=== PATIENT | male | born 1995 | race African-American/Black ===

== ENCOUNTER 2021-01-15 00:24 | Emergency (ER) | payer OTHER, SELFPAY ==
--- NOTE | ~2021-01-15 | XR_ITS ---
EXAMINATION: XR FOREARM, RIGHT XR WRIST, RIGHT CLINICAL INFORMATION: Pain and swelling COMPARISON: None TECHNIQUE: 2 views of the right forearm. 3 views of the right wrist. FINDINGS: Osseous alignment throughout the forearm and wrist is anatomic. No acute fracture is seen. No significant focal soft tissue abnormality identified. No elbow joint effusion. XR/XR forearm RT 2V IMPRESSION: No acute findings identified in the right forearm or wrist.
--- NOTE | ~2021-01-15 | XR_ITS ---
EXAMINATION: XR FOREARM, RIGHT XR WRIST, RIGHT CLINICAL INFORMATION: Pain and swelling COMPARISON: None TECHNIQUE: 2 views of the right forearm. 3 views of the right wrist. FINDINGS: Osseous alignment throughout the forearm and wrist is anatomic. No acute fracture is seen. No significant focal soft tissue abnormality identified. No elbow joint effusion. XR/XR wrist RT 2V IMPRESSION: No acute findings identified in the right forearm or wrist.
[2021-01-15 01:05] VITALS: BP 112/67; PULSE 91; RESP 18; TEMP 36.9; O2SAT 100; BMI 20.2
--- NOTE | 2021-01-15 01:14 | ED.EXTPRO ---
HPI - Extremity Problem General Chief complaint: Extremity Injury, Upper Stated complaint: Wrist pain Source: patient Mode of arrival: ambulatory Limitations: no limitations History of Present Illness HPI Narrative: 25-year-old male with past medical history of stressed induced syncope presents with right wrist and forearm pain and swelling after a fall on outstretched arm. Patient has no other complaints. MD Complaint: extremity pain and extremity swelling Onset (ago): hour(s) (Within the hour of arrival) Pain Consistency: constant Location: right Severity scale (1-10): 7 Quality: aching Radiation: distal Relieving factors: nothing Exacerbating factors: range of motion and palpation Associated symptoms: denies other symptoms Related Data Allergies Allergy/AdvReac Type Severity Reaction Status Date / Time No Known Allergies Allergy Verified 01/15/21 01:16 Review of Systems Review of Systems: Constitutional: No Fever, No Chills ENT/Mouth: No Ear Pain, No Hoarseness, No sore throat Eyes: No Eye Pain, No Swelling, No Redness, No Foreign Body Cardiovascular: No Chest Pain, No SOB Respiratory: No Cough, No Dyspnea Gastrointestinal: No Nausea, No Vomiting, No Diarrhea, No abdominal Pain Genitourinary: No Dysuria, No Hematuria Musculoskeletal: positive right wrist and forearm pain, No Myalgias, No Joint Swelling Skin: No Skin lacerations, No rash Neuro: No Weakness, No Numbness, No Paresthesias, No Loss of Consciousness, No Dizziness, No Headache Psych: No Anxiety/Panic, No Depression Heme/Lymph: no easy bruising, no Lymphadenopathy Endocrine: No Polyuria, No Polydipsia Yes all other systems are reviewed and are negative PMFSH Past Medical History Attestation statement: The following information was validated with the patient. Source: old records reviewed Medical History No known health problems Social History Social History Advance Directives: No Advance Directives Information Provided: No Physical Exam Vital Signs: Vital Signs: Last Vital Signs Temp 98.4 F 01/15/21 01:05 Pulse 91 01/15/21 01:05 Resp 18 01/15/21 01:05 BP 112/67 01/15/21 01:05 Pulse Ox 100 01/15/21 01:05 Body Mass Index 20.2 Appearance: Alert. Oriented X3. No acute distress. Eyes: Pupils equal, round and reactive to light. ENT: Pharynx normal. Neck: Normal inspection. Neck supple. CVS: Normal heart rate and rhythm. Pulses normal. Respiratory: No respiratory distress. Breath sounds normal. Abdomen: Soft and nontender. Skin: Skin warm and dry. Normal skin color. Normal skin turgor. Extremities: Full range of motion to all extremities, brisk capillary refill, equal pulses, strength 5/5. Tenderness noted to the ulnar and radial process to right upper extremity. No snuffbox tenderness noted Neuro: No motor deficit. No sensory deficit. Course Course Course Narrative: 25-year-old male presents with right arm pain and swelling after a FOOSH. Plan is for x-ray. X-rays negative for acute findings requiring emergent intervention, no suspicion of fracture. Plan of care is for Jonatan wrap, and Motrin. Patient verbalized understanding of and agrees plan of care discharge home. MDM - Extremity (Nontraumatic) MDM Narrative Medical decision making narrative: Wrist sprain, fracture Medical Records Attestation: I reviewed the patient's medical records. Imaging Data Wrist and forearm x-ray: Attestation: I personally reviewed and interpreted this imaging study as follows: Discharge Plan Discharge Clinical Impression: Contusion Qualifiers: Encounter type: initial encounter Contusion area: forearm Laterality: right Qualified Code(s): S50.11XA - Contusion of right forearm, initial encounter Patient Disposition: Home, Self-Care Instructions: Contusion in Adults (ED), R.I.C.E. Treatment (ED) Additional Instructions: You were evaluated for right arm pain. X-rays are negative for fractures. We provide an Jonatan wrap for comfort. Please use Motrin as needed for pain management. Ice and elevate to help reduce swelling and pain. Follow-up with primary care provider as needed. Thank you for choosing this emergency department for evaluation. Please follow-up with primary care physician as needed. Return to the emergency department for any new, concerning, or worsening symptoms.
[2021-01-15 02:13] VITALS: BP 120/66; PULSE 88; RESP 18; TEMP 36.9; O2SAT 98
== END 2021-01-15 03:03 | disposition home or self-care (01) ==
PROVIDERS: Emergency Provider Student in an Organized Health Care Education/Training Program
DX: S50.11XA Contusion of right forearm, initial encounter (principal); S60.211A Contusion of right wrist, initial encounter; W19.XXXA Unspecified fall, initial encounter; Y93.9 Activity, unspecified; Y92.9 Unspecified place or not applicable; Y99.9 Unspecified external cause status
CPT/HCPCS: 73090; 73100; 99283; 99284

== ENCOUNTER 2021-01-17 16:25 | Emergency (ER) | payer OTHER, SELFPAY ==
[2021-01-17 16:47] VITALS: BP 112/67; PULSE 98; RESP 18; TEMP 36.7; O2SAT 100; BMI 20.1
--- NOTE | 2021-01-17 17:50 | ED_ITS ---
HPI - Extremity Problem General Chief complaint: Extremity Injury, Upper Stated complaint: Wrist pain Time Seen by Provider: 01/17/21 17:29 Source: patient Mode of arrival: ambulatory Limitations: no limitations History of Present Illness HPI Narrative: Patient here with right upper extremity pain and intermittent numbness and tingling. The patient tells me on Monday he had a syncopal episode which he gets quite frequently and is being followed by his primary care doctor for. During that fall he landed on the right arm. He was seen here for pain and swelling and had x-rays which were unremarkable. Since then he has had pain which radiates from the elbow down the arm on the lateral aspect with intermittent numbness and tingling. Related Data Allergies Allergy/AdvReac Type Severity Reaction Status Date / Time No Known Allergies Allergy Verified 01/15/21 01:16 Review of Systems Review of Systems: Yes all other systems are reviewed and are negative Constitutional: Constitutional: Reports no additional constitutional complaints, Denies body ache(s), Denies chills, Denies fever(s), Denies headache(s) and Denies weakness Eyes: Eyes: Reports no additional eye complaints and Denies change in vision ENT: Reports system reviewed and no additional complaints, except as docum ented, Denies dizziness, Denies headache(s), Denies nasal congestion, Denies nasal discharge and Denies neck pain Cardiovascular: Cardiovascular: Reports no additional cardiovascular complaints, Denies chest pain, Denies leg edema and Denies dyspnea Respiratory: Respiratory: Reports no additional respiratory complaints, Denies cough and Denies dyspnea Gastrointestinal: Gastrointestinal: Reports no additional gastrointestinal complaints, Denies abdominal pain, Denies diarrhea, Denies nausea and Denies vomiting Genitourinary: Genitourinary: Denies urinary incontinence Musculoskeletal: Musculoskeletal: Reports no additional musculoskeletal complaints, Denies back pain, Reports arthralgias, Denies joint swelling, Denies neck pain, Reports numbness and Reports tingling Integumentary/Breasts: Skin/Breast: Reports system reviewed and no additional complaints, except as docu and Denies rash Neurologic: Reports system reviewed and no additional complaints, except as do cumented, Denies Abnormal speech present, Denies dizziness, Denies headache(s), Reports numbness, Reports tingling and Denies weakness [facility] Past Medical History Attestation statement: The following information was validated with the patient. Source: old records reviewed and nursing notes reviewed Medical History Vaso vagal episode Social History Social History Alcohol intake: never Smoked in Last 30 Days: No Use of substances other than those prescribed or required for medical reasons: No Any prior treatment program specific to substance use: No Advance Directives: No Advance Directives Information Provided: No Physical Exam Vital Signs: Vital Signs: Last Vital Signs Temp 98.1 F 01/17/21 16:47 Pulse 98 01/17/21 16:47 Resp 18 01/17/21 16:47 BP 112/67 01/17/21 16:47 Pulse Ox 100 01/17/21 16:47 Body Mass Index 20.1 Const: General: cooperative, healthy appearing, comfortable and no acute distress Orientation/consciousness: patient oriented x3 Limitations: no limitations HENMT: Head: Yes normal to inspection Ears: hearing grossly normal bilaterally General nose exam: Normal external nose present Face and sinus: Yes normal facial exam Mouth: Normal oral and palatal mucosa present Throat: Yes posterior oropharynx normal Eyes: General: appearance normal, both eyes and all related structures Pupils: Equal, round and reactive pupils present Neck: Neck: Yes normal visual inspection Chest: Chest palpation & inspection: normal inspection of the chest Resp: Effort & Inspection: normal respiratory effort Auscultation: clear to auscultation bilaterally Cardio: Rate: regular rate Rhythm: regular rhythm Peripheral pulses: Peripheral pulses 2+ throughout GI: Inspection: Yes normal to inspection Palpation (GI): Soft to palpation and nontender Auscultation: normal bowel sounds Back/Spine/Pelvis: Thoracic/Lumbar Spine: thoracic and lumbar spine normal to inspection Skin: General skin exam: no rashes or lesions noted Neuro: General: patient oriented x3, no focal motor deficits and normal sensation to monofilament Cranial nerves: Yes Equal, round and reactive pupils present Cognition (Neuro): normal cognition Speech: No Abnormal speech present Gait exam (Neuro): Normal gait present Motor exam (neuro): 5/5 motor strength present throughout Extrem: Other: Over the volar distal lateral aspect of the right wrist there is ecchymosis and mild swelling. The patient has full range of motion of the right hand and the right wrist and the right elbow with no difficulty. He is complaining of some pain which radiates from the elbow down to the 4th and 5th digit described as sharp with numbness and tingling. Normal pulse, pink warm and dry General: Yes normal to inspection Course Course Course Narrative: Persistent pain in the right upper extremity status post fall 6 days ago. Described as a radiating pain from the elbow down to the 4th and 5th digit with intermittent numbness and tingling. The patient has full range of motion. He does have an area of ecchymosis and swelling over the lateral distal volar aspect of the wrist. No new injury or trauma so does not need repeat imaging. ?sprain w/wo ulnar nerve impingement. Will place in a velcro splint and have follow-up with Orthopedics. Reviewed worrisome signs and symptoms with patient when to return to the emergency department. Comfortable discharge home. MDM - Extremity (Nontraumatic) MDM Narrative Medical decision making narrative: Wrist Velcro splint right Discharge Plan Discharge Clinical Impression: Sprain and strain of wrist, Arm paresthesia, right Patient Disposition: Home, Self-Care Instructions: Wrist Sprain (ED) Additional Instructions: Splint for comfort Ice, elevation Limit use of the hand Follow-up with orthopedics Referrals: Brandon March MD [Physician] - 2 days Stand Alone Forms: Work/School Release Interventions: ED Discharge Assessment Last Done: 01/17/21 18:08 Discharge Date/Time: 01/17/21 18:09
== END 2021-01-17 18:09 | disposition home or self-care (01) ==
PROVIDERS: Emergency Provider Emergency Medicine; PCP Pediatrics
DX: S63.501A Unspecified sprain of right wrist, initial encounter (principal); M25.531 Pain in right wrist; R20.2 Paresthesia of skin; W19.XXXA Unspecified fall, initial encounter; Y93.9 Activity, unspecified; Y92.9 Unspecified place or not applicable; Y99.9 Unspecified external cause status
CPT/HCPCS: 29125; 99284

== ENCOUNTER → 2021-01-20 13:07 | Outpatient (BNVA) | payer OTHER, SELFPAY | PROVIDERS: Visit Provider Orthopaedic Surgery ==

== ENCOUNTER 2021-01-28 17:15 | Emergency (ER) | payer OTHER, SELFPAY ==
--- NOTE | ~2021-01-28 | XR_ITS ---
EXAMINATION: RIGHT HAND WRIST. CLINICAL INFORMATION: Pain. COMPARISON: Right wrist 01/15/2021 TECHNIQUE: 3 views. FINDINGS: An oblique fracture base of fifth metacarpal without any major displacement or angulation. Rest of the visualized right hand is unremarkable. XR/XR hand wrist RT IMPRESSION: Oblique fracture base of fifth metacarpal without displacement or angulation. No fracture is better visualized on the present exam.
[2021-01-28 17:20] VITALS: BP 108/65; PULSE 75; RESP 18; TEMP 36.9; O2SAT 99; BMI 18.6
--- NOTE | 2021-01-28 18:10 | ED.GENADULT ---
HPI - General Adult General Chief complaint: General Medical Stated complaint: Hand pain Time Seen by Provider: 01/28/21 17:54 Source: patient Mode of arrival: ambulatory Limitations: no limitations History of Present Illness HPI narrative: 25-year-old male presents with right hand pain after something frozen out of his freezer fell onto his hand. He does not describe any other symptoms or injuries. Related Data Home Medications Medication Instructions Recorded Confirmed No Known Home Meds 01/20/21 01/20/21 Allergies Allergy/AdvReac Type Severity Reaction Status Date / Time No Known Allergies Allergy Verified 01/20/21 13:39 Review of Systems Review of Systems: Constitutional: No Fever, No Chills ENT/Mouth: No Ear Pain, No Hoarseness, No sore throat Eyes: No Eye Pain, No Swelling, No Redness, No Foreign Body Cardiovascular: No Chest Pain, No SOB Respiratory: No Cough, No Dyspnea Gastrointestinal: No Nausea, No Vomiting, No Diarrhea, No abdominal Pain Genitourinary: No Dysuria, No Hematuria Musculoskeletal: positive right hand pain, No Myalgias, No Joint Swelling Skin: No Skin lacerations, No rash Neuro: No Weakness, No Numbness, No Paresthesias, No Loss of Consciousness, No Dizziness, No Headache Psych: No Anxiety/Panic, No Depression Heme/Lymph: no easy bruising, no Lymphadenopathy Endocrine: No Polyuria, No Polydipsia Yes all other systems are reviewed and are negative [facility] Past Medical History Attestation statement: The following information was validated with the patient. 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 Oriented X3. No acute distress. Eyes: Pupils equal, round and reactive to light. ENT: Pharynx normal. Neck: Normal inspection. Neck supple. CVS: Normal heart rate and rhythm. Pulses normal. Respiratory: No respiratory distress. Breath sounds normal. Abdomen: Soft and nontender. Skin: Skin warm and dry. Normal skin color. Normal skin turgor. Extremities: Right hand tender to palpation at the base of the 5th finger, full range of motion to all fingers and thumb, no indication of tendon injury. No swelling, bruising or abrasions noted. Neuro: No motor deficit. No sensory deficit. Course Course Course Narrative: 25-year-old male presents with right hand pain after something frozen out of his freezer fell onto his hand. It is interesting to note that this is his 3rd presentation to the emergency department for similar complaints and right hand pain. He does not have any bruising or swelling consistent with a crush injury like a contusion or hematoma. He is apprehensive about closing and opening his fingers, stating that his hand hurts. Plan of care is for x-ray of the hand and wrist. X-ray is positive for a boxer's fracture at the 5th metacarpal base. His mother is at bedside, I did update the patient and the patient's mother that this injury is not consistent with a crush injury. Patient will be placed in an ulnar gutter splint, refer to Orthopedics, and patient will use Tylenol and Motrin as needed for pain management. Patient verbalized understanding of and agrees to plan of care discharge home. Medical Decision Making Differential Diagnosis Differential Diagnosis: Sprain, fracture Medical Records Medical records reviewed: Yes I reviewed the patient's medical records. Imaging Data Hand and wrist x-ray: Attestation: I personally reviewed and interpreted this imaging study as follows: Radiologist's impression: EXAMINATION: RIGHT HAND WRIST. CLINICAL INFORMATION: Pain. COMPARISON: Right wrist 01/15/2021 TECHNIQUE: 3 views. FINDINGS: An oblique fracture base of fifth metacarpal without any major displacement or angulation. Rest of the visualized right hand is unremarkable. XR/XR hand wrist RT IMPRESSION: Oblique fracture base of fifth metacarpal without displacement or angulation. No fracture is better visualized on the present exam. Discharge Plan Discharge Clinical Impression: Fracture of fifth metacarpal bone Qualifiers: Encounter type: initial encounter Fracture type: closed Metacarpal location: base Fracture alignment: nondisplaced Laterality: right Qualified Code(s): S62.346A - Nondisplaced fracture of base of fifth metacarpal bone, right hand, initial encounter for closed fracture Patient Disposition: Home, Self-Care Instructions: Hand Fracture (ED), Boxer Fracture (ED), R.I.C.E. Treatment (ED) Additional Instructions: You were treated for right hand pain. X-rays indicate a fracture at the base of the 5th metacarpal. Please keep splint in place until you see Orthopedics. Use Tylenol and Motrin as needed for pain management. Use ice and elevation to help decrease swelling. Do not remove the splint until you see Orthopedics. Thank you for choosing this emergency department for evaluation. Please follow-up with primary care physician as needed. Return to the emergency department for any new, concerning, or worsening symptoms. Referrals: Nikki Guaman MD [Physician] - 2 days (Fifth metacarpal fracture) Stand Alone Forms: Work/School Release Interventions: ED Discharge Assessment Last Done: 01/28/21 19:22 Discharge Date/Time: 01/28/21 19:23
== END 2021-01-28 19:23 | disposition home or self-care (01) ==
PROVIDERS: Emergency Provider Emergency Medicine; PCP Pediatrics
DX: S62.346A Nondisplaced fracture of base of fifth metacarpal bone, right hand, initial encounter for closed fracture (principal); W20.8XXA Other cause of strike by thrown, projected or falling object, initial encounter; Y93.89 Activity, other specified; Y92.010 Kitchen of single-family (private) house as the place of occurrence of the external cause; Y99.9 Unspecified external cause status
CPT/HCPCS: 29125; 73110; 73130; 99283

== ENCOUNTER 2021-02-03 08:31 | Outpatient (REF) | payer OTHER, SELFPAY ==
--- NOTE | ~2021-02-03 | XR_ITS ---
EXAMINATION: XR HAND, RIGHT CLINICAL INFORMATION: Pain in right hand COMPARISON: None TECHNIQUE: PA, lateral, and oblique views of the right hand. FINDINGS: There is an oblique fracture of the proximal diametaphysis of the fifth metacarpal. There is persistent apex dorsal angulation and minimal apex lateral angulation. The fracture less conspicuous compared to prior indicative of at least partial osseous bridging. Remaining bones joints and soft tissues are unremarkable. XR/XR hand RT min 3V IMPRESSION: Partial healing of the fifth metacarpal fracture. Question increased apex dorsal angulation compared with the prior examination. Exact comparison is limited given the differences in projection.
== END 2021-02-03 08:32 | disposition home or self-care (01) ==
LOC: HO.HOSX 08:31
PROVIDERS: Visit Provider Physician Assistant
DX: M79.641 Pain in right hand (principal); S62.308A Unspecified fracture of other metacarpal bone, initial encounter for closed fracture
CPT/HCPCS: 26600; 73130

== ENCOUNTER 2021-02-10 08:03 | Outpatient (REF) | payer OTHER, SELFPAY ==
--- NOTE | ~2021-02-10 | XR_ITS ---
EXAMINATION: XR HAND, RIGHT CLINICAL INFORMATION: Fracture. COMPARISON: Most recent right hand radiographs dated 02/03/2021 TECHNIQUE: PA, lateral, and oblique views of the right hand. FINDINGS: Redemonstration of a 5th metacarpal fracture in unchanged osseous alignment as viewed through an overlying cast. Evaluation limited due to the cast. No new fracture or dislocation. No osseous erosion. No abnormal soft tissue calcification. XR/XR hand RT min 3V IMPRESSION: Fifth metacarpal fracture in unchanged alignment. Evaluation for new bone/callus formation limited by the overlying cast.
== END 2021-02-10 08:04 | disposition home or self-care (01) ==
LOC: HO.HOSX 08:03
PROVIDERS: Visit Provider Physician Assistant
DX: S62.316D Displaced fracture of base of fifth metacarpal bone, right hand, subsequent encounter for fracture with routine healing (principal)
CPT/HCPCS: 73130

== ENCOUNTER 2021-03-10 14:41 | Outpatient (REF) | payer OTHER, SELFPAY ==
--- NOTE | ~2021-03-10 | XR_ITS ---
EXAMINATION: XR HAND, RIGHT CLINICAL INFORMATION: Right hand pain. COMPARISON: 02/10/2021 and studies dating back to 01/15/2021 TECHNIQUE: PA, lateral, and oblique views of the right hand. FINDINGS: There is again noted to be a healing transverse fracture through the right 5th metacarpal with stable alignment. There appears to be some mild periosteal new bone formation present. No new fracture is appreciated. XR/XR hand RT min 3V IMPRESSION: Healing fracture right 5th metacarpal without change in alignment.
== END 2021-03-10 14:42 | disposition home or self-care (01) ==
LOC: HO.HOSX 14:41
PROVIDERS: Visit Provider Orthopaedic Surgery
DX: S62.308D Unspecified fracture of other metacarpal bone, subsequent encounter for fracture with routine healing (principal)
CPT/HCPCS: 73130

== ENCOUNTER 2021-04-14 08:23 | Outpatient (REF) | payer OTHER, SELFPAY ==
--- NOTE | ~2021-04-14 | XR_ITS ---
EXAMINATION: XR WRIST, RIGHT CLINICAL INFORMATION: Fracture, pain. Followup. COMPARISON: Radiographs right hand 03/10/2021, 02/10/2021, 02/03/2021 TECHNIQUE: Right hand is imaged in 3 views. FINDINGS: There is an oblique fracture proximal shaft 5th metacarpal. Fracture is less distinct consistent with some interval healing. There is no change in alignment. No destructive process. The remainder of the bony structures are unremarkable. XR/XR wrist RT min 3V IMPRESSION: Healing fracture 5th metacarpal. No change in alignment.
== END 2021-04-14 08:24 | disposition home or self-care (01) ==
LOC: HO.HOSX 08:23
PROVIDERS: Visit Provider Orthopaedic Surgery
DX: S62.346D Nondisplaced fracture of base of fifth metacarpal bone, right hand, subsequent encounter for fracture with routine healing (principal)
CPT/HCPCS: 73110

== ENCOUNTER 2023-01-18 07:11 | Emergency (ER) | payer OTHER, SELFPAY ==
--- NOTE | ~2023-01-18 | XR_ITS ---
EXAMINATION: XR CHEST CLINICAL INFORMATION: Fever COMPARISON: None available. TECHNIQUE: 2 views of the chest were obtained. FINDINGS: No significant abnormality is noted involving the heart, lungs, mediastinum, bony thorax or soft tissues. There is some mild increased opacity on the AP film in the infrahilar regions, but no convincing infiltrates are present. XR/XR chest 2V IMPRESSION: No acute intrathoracic disease.
[2023-01-18 07:15] VITALS: BP 107/71; PULSE 94; RESP 16; TEMP 37.6; O2SAT 98; BMI 25.2
--- NOTE | 2023-01-18 09:07 | ED.GENADULT ---
HPI - General Adult General Chief complaint: Skin/Abscess/Foreign Body Stated complaint: Tick Bite R Side Fever Time Seen by Provider: 01/18/23 09:04 Source: patient Mode of arrival: ambulatory Limitations: no limitations History of Present Illness HPI narrative: Patient is a 27-year-old male presenting with tender erythema to his right flank since last night as well as fever. he reports a tick bite to the same area approximately 2 weeks ago, is unsure how long take was imbedded for but he removed it immediately upon finding it. He states that several days ago he noted redness to his right flank which became painful last night. He reports fever yesterday with T-max of 101.3?. He also reports generalized body aches. He outlined the erythema prior to arrival. He denies any recent cough or URI symptoms, abdominal pain, urinary symptoms, concern for STIs, or back pain. He denies any other rashes. He denies any new medications or recent medication changes. Related Data Previous Rx's Medication Instructions Recorded doxycycline hyclate 100 mg capsule 100 mg PO BID #42 caps 01/18/23 Allergies Allergy/AdvReac Type Severity Reaction Status Date / Time No Known Allergies Allergy Verified 01/18/23 07:20 Review of Systems Review of Systems: As per HPI. 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 Physical Exam ED Vital Signs: Vital Signs - 24 hr 01/18/23 07:15 01/18/23 09:26 01/18/23 13:21 Temperature 99.6 F 98.7 F 98.6 F Pulse Rate 94 68 76 Respiratory Rate 16 18 16 Blood Pressure 107/71 106/68 117/77 Pulse Oximetry 98 100 100 Oxygen Delivery Method Room Air Room Air Room Air BMI result Body Mass Index 25.2 Const General: cooperative, healthy appearing and no acute distress Orientation/consciousness: oriented to person, oriented to place, oriented to time and patient oriented x3 Limitations: no limitations HENSC Head: Yes normocephalic and Yes atraumatic Ears: external ears normal General nose exam: Normal external nose present Face and sinus: Yes face symmetric Mouth: oropharynx normal and moist mucous membranes Throat: Yes uvula midline Eyes Pupils: Equal, round and reactive pupils present Neck Neck: Yes normal visual inspection and Yes supple Resp Effort & Inspection: normal respiratory effort and able to speak in complete sentences Auscultation: clear to auscultation bilaterally Cardio Rate: regular rate Rhythm: regular rhythm Heart sounds: S1 normal heart sound present and S2 normal heart sound present GI Inspection: Yes normal to inspection Palpation (GI): Soft to palpation and nontender Auscultation: normoactive bowel sounds General: Yes no CVA tenderness Back/Spine/Pelvis Back: no CVA tenderness Skin Other: [id number] oval area of blanchable erythema to right flank with warmth, no induration or fluctuance, no opening, no discharge or drainage, no central clearing, negative Nikolsky, no petechiae. No bullae, no rash to palms or soles of feet, no pain out of proportion. General skin exam: elasticity normal and turgor normal Neuro General: oriented to person, oriented to place, oriented to time, patient oriented x3, moves all extremities, no focal motor deficits and CN's II-XI intact bilaterally Cranial nerves: Yes Equal, round and reactive pupils present Cognition (Neuro): normal cognition Extrem General: Yes full ROM, Yes no pedal edema and Yes no calf tenderness Psych Mental Status: mental status grossly normal Affect: normal affect Thought process: Normal thought process present Course Course Course Narrative: Leukocytosis noted on CBC, blood cultures and lactic ordered. 10:550 Critical lactic of 3.0 from lab, ordered NS bolus, CXR, urinalyis and CT NG 14:12 Repeat lactate improved to 0.9, urine and CXR negative, case discussed with and patient examined by Dr. Brambila who agrees patient is safe to discharge home on 21 day course of doxycycline. Will notify patient of any positive results. Instructed patient to follow up with PCP and return precautions discussed at bedside. Medications Administered Discontinued Medications Generic Name Dose Route Start Last Admin Trade Name Freq PRN Reason Stop Dose Admin Sodium Chloride 1,000 mls @ 999 mls/hr 01/18/23 10:49 01/18/23 12:23 Ns IV 01/18/23 11:49 Infused .Q1H1M STA Infusion Sodium Chloride 1,000 mls @ 999 mls/hr 01/18/23 12:13 01/18/23 13:37 Ns IV 01/18/23 13:13 Infused .Q1H1M STA Infusion Medical Decision Making Medical Decision Making [facility] Narrative: Patient is a 27-year-old male presenting with tender erythema to his right flank since last night as well as fever after known tick bite. On exam patient is non-toxic appearing with VS WNL, normal neurological exam, no bullae or petechiae, negative Nikolosky. Concern for tick-borne illnesses including lyme, ehrlichiosis, babesiosis, casimiro mountain spotted fever, as well as folliculitis or cellulitis. Low concern for TSS, SJS/TEN, TTP, DRESS, necrotizing fasciitis. Plan: labs including tick panel, likely discharge home on doxycycline. Please refer to course for remaining clinical decision making. Differential Diagnosis Differential Diagnoses: The differential diagnosis associated with the presentation includes As above. Admission/Observation Consideration of admission/observation: Escalation of care including admission/observation considered Lab Data [facility] Lab Attestation statement: I reviewed the patient's lab results. 01/18/23 09:36 01/18/23 09:36 Labs: Lab Results 01/18/23 01/18/23 01/18/23 Range/Units 09:36 09:36 10:15 WBC 21.6 H (4.8-10.8) X10*3/uL RBC 4.73 (4.60-5.80) X10*6/uL Hgb 13.9 L (14.0-18.0) g/dl Hct 43.7 (42.0-52.0) % MCV 92.4 (80.0-98.0) fL MCH 29.4 (27.0-33.0) pg MCHC 31.8 (31.0-36.0) g/dl RDW 13.1 (11.0-16.0) % Plt Count 248 (160-400) X10*3/uL MPV 10.4 (9.4-12.4) fL Immature Gran % (Auto) 0.5 H (0.0-0.4) % Neut % (Auto) 82.5 H (45-73) % Lymph % (Auto) 12.1 L (20-40) % [place] % (Auto) 3.2 (2-11) % Eos % (Auto) 1.5 (0-4) % Baso % (Auto) 0.2 (0-2) % Lymph # (Auto) 2.6 (1.2-4.9) X10*3/uL [place] # (Auto) 0.7 (0.1-1.2) X10*3/uL Eos # (Auto) 0.3 (0.0-0.4) X10*3/uL Baso # (Auto) 0.1 (0.0-0.2) X10*3/uL Abs Immat Gran (auto) 0.10 H (0.00-0.03) X10*3/uL Absolute Neuts (auto) 17.8 H (2.0-8.3) x10*3/uL Absolute Nucleated RBC 0.000 (0.0-0.012) X10*3/uL Nucleated RBC % (auto) 0.0 (0.0-0.2) /100WBC PT 11.7 (10.0-13.1) SEC INR 1.0 (0.9-1.1) Sodium 142 (135-145) mmol/L Potassium 5.8 H (3.3-5.1) mmol/L Chloride 105 (96-108) mmol/L Carbon Dioxide 31 H (22-29) mmol/L Anion Gap 12 (12-20) BUN 9 (9-16) mg/dL Creatinine 1.11 (0.5-1.4) mg/dL Estim Creat Clear Calc 101.3 Estimated GFR > 60 Random Glucose 105 (60-115) mg/dL Lactic Acid (0.5-2.0) mmol/L Lactic Acid F/U @ 2Hr (0.5-2.0) mmol/L Calcium 10.1 (8.4-10.2) mg/dL Total Bilirubin 0.7 (0.0-1.0) mg/dL Direct Bilirubin 0.2 (0.0-0.5) mg/dL AST 19 (5-37) U/L ALT 13 (0-40) U/L Alkaline Phosphatase 94 (39-117) U/L Total Creatine Kinase 117 (38-174) U/L Total Protein 7.2 (6.5-8.0) g/dL Albumin 4.7 (3.5-5.0) g/dL Urine Color Urine Appearance Urine pH (5.0-9.0) Ur Specific [place] (1.005-1.025) Urine Protein (Neg-Trace) mg/dL Urine Glucose (UA) (Negative) mg/dL Urine Ketones (Negative) mg/dL Urine Blood (Negative) Urine Nitrite (Negative) Ur Leukocyte Esterase (Negative) 01/18/23 01/18/23 01/18/23 Range/Units 10:15 12:16 13:24 WBC (4.8-10.8) X10*3/uL RBC (4.60-5.80) X10*6/uL Hgb (14.0-18.0) g/dl Hct (42.0-52.0) % MCV (80.0-98.0) fL MCH (27.0-33.0) pg MCHC (31.0-36.0) g/dl RDW (11.0-16.0) % Plt Count (160-400) X10*3/uL MPV (9.4-12.4) fL Immature Gran % (Auto) (0.0-0.4) % Neut % (Auto) (45-73) % Lymph % (Auto) (20-40) % [place] % (Auto) (2-11) % Eos % (Auto) (0-4) % Baso % (Auto) (0-2) % Lymph # (Auto) (1.2-4.9) X10*3/uL [place] # (Auto) (0.1-1.2) X10*3/uL Eos # (Auto) (0.0-0.4) X10*3/uL Baso # (Auto) (0.0-0.2) X10*3/uL Abs Immat Gran (auto) (0.00-0.03) X10*3/uL Absolute Neuts (auto) (2.0-8.3) x10*3/uL Absolute Nucleated RBC (0.0-0.012) X10*3/uL Nucleated RBC % (auto) (0.0-0.2) /100WBC PT (10.0-13.1) SEC INR (0.9-1.1) Sodium (135-145) mmol/L Potassium (3.3-5.1) mmol/L Chloride (96-108) mmol/L Carbon Dioxide (22-29) mmol/L Anion Gap (12-20) BUN (9-16) mg/dL Creatinine (0.5-1.4) mg/dL Estim Creat Clear Calc Estimated GFR Random Glucose (60-115) mg/dL Lactic Acid 3.0 H* (0.5-2.0) mmol/L Lactic Acid F/U @ 2Hr 0.9 (0.5-2.0) mmol/L Calcium (8.4-10.2) mg/dL Total Bilirubin (0.0-1.0) mg/dL Direct Bilirubin (0.0-0.5) mg/dL AST (5-37) U/L ALT (0-40) U/L Alkaline Phosphatase (39-117) U/L Total Creatine Kinase (38-174) U/L Total Protein (6.5-8.0) g/dL Albumin (3.5-5.0) g/dL Urine Color Yellow Urine Appearance Clear Urine pH 8.0 (5.0-9.0) Ur Specific [place] 1.010 (1.005-1.025) Urine Protein Negative (Neg-Trace) mg/dL Urine Glucose (UA) Negative (Negative) mg/dL Urine Ketones Negative (Negative) mg/dL Urine Blood Negative (Negative) Urine Nitrite Negative (Negative) Ur Leukocyte Esterase Negative (Negative) Independent Interpretation I performed an independent interpretation of an: Plain X-Ray Interpretation: I independently reviewed the x-ray and agree with the radiologist's interpretation. Radiology Impression Discussion of test interpretation with radiology: I have reviewed the radiologist's reading. Radiologist Impression: FINDINGS: No significant abnormality is noted involving the heart, lungs, mediastinum, bony thorax or soft tissues. There is some mild increased opacity on the AP film in the infrahilar regions, but no convincing infiltrates are present. XR/XR chest 2V IMPRESSION: No acute intrathoracic disease. Independent Historian Clinical information obtained from an independent historian. History obtained from or confirmed by: Parent (mother) External Record Review External record reviewed: Inpatient record, Office record and Outpatient record Prescription Management I considered prescription management with: Antibiotic (doxycycline) Discharge Plan Discharge Clinical Impression: Tick bite of abdomen, Leukocytosis Patient Disposition: Home, Self-Care Instructions: Doxycycline (By mouth), Tick Bite (ED) Additional Instructions: You were evaluated in the emergency department today for a rash and fever following a tick bite. Your evaluation suggests your symptoms are most likely due to a tick-borne illness. You are being prescribed an antibiotic called doxycycline for 21 days. You should take the full course of antibiotics as prescribed to completion. Please follow-up with your primary care provider within 2 days. Return to the emergency department if you experience worsening or spreading rash, worsening or uncontrolled pain, fevers 100.4 or greater that cannot be controlled with Tylenol/ibuprofen, recurrent vomiting, shortness of breath, discharge or drainage from your rash, or any other concerning symptoms. Prescriptions: New doxycycline hyclate 100 mg capsule 100 mg PO BID Qty: 42 0RF
[2023-01-18 09:26] VITALS: BP 106/68; PULSE 68; RESP 18; TEMP 37.1; O2SAT 100
[2023-01-18 09:40] LABS: MANUAL DIFF FLAG NO
[2023-01-18 09:43] LABS: Basophils Absolute Auto 0.1 X10*3/uL (0.0-0.2); Basophils Percent Auto 0.2 % (0-2); Eosinophils Absolute Auto 0.3 X10*3/uL (0.0-0.4); Eosinophils Percent Auto 1.5 % (0-4); Hematocrit 43.7 % (42.0-52.0); Hemoglobin 13.9 g/dl (14.0-18.0); Imm Gran Pct Auto 0.5 % (0.0-0.4); Lymphocytes Absolute Auto 2.6 X10*3/uL (1.2-4.9); Lymphocytes Percent Auto 12.1 % (20-40); Mean Corpuscular HGB Conc 31.8 g/dl (31.0-36.0); Mean Corpuscular Hemoglobin 29.4 pg (27.0-33.0); Mean Corpuscular Volume 92.4 fL (80.0-98.0); Mean Platelet Volume 10.4 fL (9.4-12.4); Monocytes Absolute Auto 0.7 X10*3/uL (0.1-1.2); Monocytes Percent Auto 3.2 % (2-11); Neutrophils Absolute Auto 17.8 x10*3/uL (2.0-8.3); Neutrophils Percent Auto 82.5 % (45-73); Platelet Count 248 X10*3/uL (160-400); Red Blood Count 4.73 X10*6/uL (4.60-5.80); Red Cell Distribution Width 13.1 % (11.0-16.0); White Blood Count 21.6 X10*3/uL (4.8-10.8)
[2023-01-18 10:03] LABS: Alanine Aminotransferase 13 U/L (0-40); Albumin Level 4.7 g/dL (3.5-5.0); Alkaline Phosphatase 94 U/L (39-117); Anion Gap 12 (12-20); Aspartate Amino Transferase 19 U/L (5-37); Bilirubin Direct 0.2 mg/dL (0.0-0.5); Bilirubin Total 0.7 mg/dL (0.0-1.0); Blood Urea Nitrogen 9 mg/dL (9-16); Calcium 10.1 mg/dL (8.4-10.2); Carbon Dioxide 31 mmol/L (22-29); Chloride 105 mmol/L (96-108); Creatinine Clr Calc Pharmacy 101.3; Estimated Glomerular Filt Rate > 60; Glucose Random 105 mg/dL (60-115); Potassium 5.8 mmol/L (3.3-5.1); Sodium 142 mmol/L (135-145); Total Protein 7.2 g/dL (6.5-8.0)
[2023-01-18 10:27] LABS: Prothrombin Time 11.7 SEC (10.0-13.1)
[2023-01-18] MEDS: 0.9 % Sodium Chloride 1,000 ML 999 ML IV ×2 (11:37→12:21)
[2023-01-18 12:18] LABS: Reflex Lactate? Lactic Acid Added
[2023-01-18 12:32] LABS: Appearance Urine Clear; Color Urine Yellow; Glucose Urine UA Negative (Negative); Leukocyte Esterase Urine Negative (Negative); Nitrite Urine Negative (Negative); Urine Blood Negative (Negative); Urine Ketones Negative (Negative); Urine Protein Negative (Neg-Trace)
[2023-01-18 13:21] VITALS: BP 117/77; PULSE 76; RESP 16; TEMP 37; O2SAT 100
[2023-01-18 13:44] LABS: ~Lactic Acid-LAB USE ONLY 0.9 mmol/L (0.5-2.0)
--- NOTE | 2023-01-18 13:56 | PC.NURSE ---
pt medicated per NOV, pt rec 2L NS via 20G IV in right forearm. pt repeat lactic WNL, provider aware
[2023-01-18 15:10] LABS: CT PCR NOT DETECTED (Not Detect.); NG PCR NOT DETECTED (Not Detect.)
[2023-01-20 05:33] LABS: Lyme Abs Screen <0.90 index
[2023-01-23 22:28] LABS: Rocky Mtn. Spot. Fever IgG Ab Not Detected (Not Detected); Rocky Mtn.Spot. Fever IgM Ab Not Detected (Not Detected)
[2023-01-24 11:43] LABS: Babesia IgG <1:64 titer (<1:64); Babesia IgM <1:20 titer (<1:20)
[2023-01-24 12:49] LABS: A. Phagocytophilum Ab IgG <1:64 (<1:64); A. Phagocytophilum Ab IgM <1:20 (<1:20); E. Chaffeensis Ab IgG <1:64 (<1:64); E. Chaffeensis Ab IgM <1:20 (<1:20)
== END 2023-01-18 14:54 | disposition home or self-care (01) ==
PROVIDERS: Registered Nurse Emergency; Emergency Provider Emergency Medicine Emergency Medical Services; PCP Nurse Practitioner Family
DX: S30.861A Insect bite (nonvenomous) of abdominal wall, initial encounter (principal); W57.XXXA Bitten or stung by nonvenomous insect and other nonvenomous arthropods, initial encounter; D72.829 Elevated white blood cell count, unspecified; Y93.9 Activity, unspecified; Y92.9 Unspecified place or not applicable; Y99.9 Unspecified external cause status
CPT/HCPCS: 0353U; 36415; 71046; 80048; 80076; 81003; 82550; 83605; 85025; 85610; 86617; 86618; 86666; 86753; 86757; 87040; 96360; 96361; 99284

== ENCOUNTER 2023-03-07 12:03 | Outpatient (REF) | payer OTHER, SELFPAY ==
[2023-03-07 14:23] LABS: Hematocrit 41.9 % (42.0-52.0); Hemoglobin 13.5 g/dl (14.0-18.0); Mean Corpuscular HGB Conc 32.2 g/dl (31.0-36.0); Mean Corpuscular Hemoglobin 29.5 pg (27.0-33.0); Mean Corpuscular Volume 91.5 fL (80.0-98.0); Mean Platelet Volume 11.4 fL (9.4-12.4); Platelet Count 236 X10*3/uL (160-400); Red Blood Count 4.58 X10*6/uL (4.60-5.80); Red Cell Distribution Width 13.2 % (11.0-16.0); White Blood Count 9.8 X10*3/uL (4.8-10.8)
[2023-03-07 14:43] LABS: Cholesterol 192 mg/dL; HDL Cholesterol 43 mg/dL; LDL Cholesterol Calculated 129 mg/dl; Potassium 4.8 mmol/L (3.3-5.1); Triglycerides 102 mg/dL
[2023-03-07 14:58] LABS: TSH reflex Free T4 2.15 uIU/mL (0.32-4.0)
== END 2023-03-07 12:04 | disposition home or self-care (01) ==
LOC: HO.WFDLDS 12:03
PROVIDERS: Visit Provider Nurse Practitioner Family
DX: Z00.00 Encounter for general adult medical examination without abnormal findings (principal)
CPT/HCPCS: 36415; 80061; 84132; 84443; 85027

== ENCOUNTER 2025-01-30 15:32 | Outpatient (AMB) | payer OTHER, SELFPAY ==
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
[2025-01-30 15:45] VITALS: BP 98/62; PULSE 76; RESP 12; O2SAT 100; BMI 24.9
== END 2025-01-30 16:21 | disposition home or self-care (01) ==
LOC: HO.HMCFM 15:33
PROVIDERS: PCP Nurse Practitioner Family; Visit Provider Physician Assistant
DX: Z00.00 Encounter for general adult medical examination without abnormal findings (principal); F41.9 Anxiety disorder, unspecified; F32.A Depression, unspecified; M62.81 Muscle weakness (generalized); F68.8 Other specified disorders of adult personality and behavior

== ENCOUNTER → 2025-01-30 15:32 | Outpatient (BNVA) | payer OTHER, SELFPAY | PROVIDERS: PCP Nurse Practitioner Family; Visit Provider Physician Assistant | DX: Z00.01 Encounter for general adult medical examination with abnormal findings (principal); F41.9 Anxiety disorder, unspecified; F32.A Depression, unspecified; M62.81 Muscle weakness (generalized); F68.8 Other specified disorders of adult personality and behavior | CPT/HCPCS: 96127; 99212 ==

== ENCOUNTER 2025-02-28 15:13 | Outpatient (AMB) | payer OTHER, SELFPAY ==
--- NOTE | 2025-02-28 15:18 | A.OFFPC_ITS ---
Vital Signs 02/28/25 15:24 Height 5 ft 11 in Weight 175 lb 6 oz BMI 24.5 BP 121/76 Blood Pressure Location Lt brachial Position Sitting Respiration 12 Pulse 79 Pulse Source Pulse Oximeter Temp 98.1 F Temp Source Oral Pulse Oximetry (%) 99 Oxygen Delivery Method Room Air Intake Visit Reasons: f/u subjective weakness, MH Intake Note: Chest and upper body muscle weakness when laughing. Allergies No Known Allergies Allergy (Verified 02/28/25 15:35) Tobacco use date assessed: 01/30/25 Dental Screening Dental Screen Date: 01/30/25 HPI HPI Comments History of Present Illness Details 29-year-old male presents with complaint s of weakness from his anterior chest to abdomen, only with severe laughter. His symptoms have been intermittent but frequent for over a year. He notes that It feels like everything (anterior chest to abdomen) is going to give out. He denies difficulty breathing, chest pain, or any associated symptoms. No acute symptoms at this time. [facility] Medical History (Updated 02/28/25 @ 15:42 by Fawad Simmons CNP) Depression Anxiety Lyme disease Vaso vagal episode Surgical History H/O adenoidectomy History of meatotomy of urethra Social History (Updated 01/30/25 @ 15:49 by Hilary Reich CMA) Housing: Condominium Alcohol intake: current Alcohol intake frequency: a few times a week Patient Tobacco Use Status: Never used Tobacco e-Cigarette/Vaping Use: Never Used Second Hand Smoke Exposure: No Substance Use Type: Marijuana service: No Current occupational status: unemployed Cognitive needs: No Hearing needs: No Vision needs: No Questionnaire Thrive Questionnaire Date Thrive assessed: 01/30/25 I am a: Patient What is your living situation today?: I have a steady place to live Within the past 12 months, did the food you bought not last and you didn't have the money to get more?: Never true Within the past 12 months, did you worry whether your food would run out before you got money to buy more?: Never true Do you have trouble paying for medicines?: No Do you have trouble getting transportation to medical appointments?: No Do you have trouble paying your heating and electricity bill?: No Do you have trouble taking care of your child, family member or friend?: No Do you have trouble with day-to-day activities such as bathing, preparing meals, shopping, managing finances, etc.?: No Are you currently unemployed and looking for a job?: Yes Are you interested in more education?: No Please select the resources that you would like help with: Daily support THRIVE Score: 0 ÁLVARO-7 AMB Questionnaire ÁLVARO-7 Date ÁLVARO - 7 assessed: 01/30/25 Source: Developed by Drs. Asher Shook, Susan Connolly, James Ross and colleagues, with an educational macario from [employer]. Review of Systems Const Details: Const Denies chills, Denies fatigue, Denies fever(s), Denies headache(s) and Denies weakness ENT Denies dizziness and Denies headache(s) Card Denies chest pain, Denies lightheadedness, Denies dyspnea and Denies other (Palpitations) Resp Denies cough, Denies dyspnea, Denies wheezing and Denies other ( shortness of breath) GI Denies abdominal pain, Denies melena, Denies hematochezia, Denies change in bowel habits, Denies dyspepsia and Denies nausea Denies hematuria and Denies dysuria Musc Denies abnormal gait, Denies myalgias, Denies arthralgias, Denies numbness and Denies tingling Skin/Breast Denies rash, Denies unusual bruising and Denies wounds Neuro Denies abnormal gait, Denies dizziness, Denies headache(s), Denies memory loss, Denies numbness, Denies Sensory deficit (Neuro), Denies tingling and Denies weakness Psych Denies anxiety, Denies depression, Denies memory loss Endo Denies cold intolerance, Denies fatigue, Denies heat intolerance, Denies polydipsia and Denies polyuria Aller/Immun Denies wheezing Physical exam (Primary Care) Vital Signs: Last Vital Signs Temp 98.1 F 02/28/25 15:24 Pulse 79 02/28/25 15:24 Resp 12 02/28/25 15:24 BP 121/76 02/28/25 15:24 Pulse Ox 99 02/28/25 15:24 Oxygen Delivery Method Room Air 02/28/25 15:24 BMI result Body Mass Index 24.5 Tobacco/Smoking Status: Tobacco use Status Tobacco use date assessed 01/30/25 02/28/25 15:23 Patient Tobacco Use Status Never used Tobacco 02/28/25 15:23 e-Cigarette/Vaping Use Never Used 02/28/25 15:23 Thrive Assessment: Date of Thrive Assessment Date Thrive assessed 01/30/25 02/28/25 15:23 Const Other: General: no acute distress and well developed Nutritional Appearance: well nourished Orientation/consciousness: patient oriented x3 HENMT Head: Yes normocephalic and Yes atraumatic Eyes General: appearance normal, both eyes and all related structures Pupils: Equal, round and reactive pupils present EOM: EOMs intact bilaterally Resp Effort & Inspection: normal respiratory effort Auscultation: clear to auscultation bilaterally Cardio Rate: regular rate Rhythm: regular rhythm Heart sounds: S1 normal heart sound present, S2 normal heart sound present, no gallops, no murmurs and no rubs GI Palpation (GI): No Abdominal aortic bruit present, Soft to palpation, nontender, No hepatosplenomegaly present and No Rebound tenderness present Auscultation: normal bowel sounds General: Yes no CVA tenderness Back/Spine/Pelvis Back: no CVA tenderness Cervical Spine: cervical ROM normal and No Cervical spine tenderness Thoracic/Lumbar Spine: thoraco-lumbar ROM normal, No pain with thoraco-lumbar ROM, No thoracic spinal tenderness and No lumbar spinal tenderness Extrem General: Yes normal to inspection, No edema and No calf tenderness Skin General: warm and dry. Normal skin color. Normal skin turgor Neuro General: patient oriented x3, gait normal and no focal neuro deficit Cranial nerves: Yes Equal, round and reactive pupils present Cognition (Neuro): normal cognition Gait exam (Neuro): Normal gait present Sensory Exam: No Sensory deficit (Neuro) Psych Appearance: grossly normal Affect: normal affect Attitude: cooperative Thought process: Normal thought process present Coding Level of Care Code Est Pt Level 3 (47960) Diagnoses Muscle weakness M62.81 Assessment & Plan Assessment & Plan (1) Muscle weakness: Code(s): M62.81 - Muscle weakness (generalized) Category: Medical Plan: Normal physical and neuro exam, no focal neuro deficit. Encouraged to perform routine outstanding lab work and follow-up for a telehealth lvisit for labs revisit. Return with worsening or new symptoms. Verbalized understanding and agreed with the plan.
[2025-02-28 15:24] VITALS: BP 121/76; PULSE 79; RESP 12; TEMP 36.7; O2SAT 99; BMI 24.5
== END 2025-02-28 15:40 | disposition home or self-care (01) ==
LOC: HO.HMCFM 15:13
PROVIDERS: PCP Nurse Practitioner Family; Visit Provider Nurse Practitioner Family
DX: M62.81 Muscle weakness (generalized) (principal)

== ENCOUNTER → 2025-02-28 15:13 | Outpatient (BNVA) | payer OTHER, SELFPAY | PROVIDERS: PCP Nurse Practitioner Family; Visit Provider Nurse Practitioner Family | DX: M62.81 Muscle weakness (generalized) (principal) | CPT/HCPCS: 99212 ==

== ENCOUNTER 2025-02-28 15:45 | Outpatient (REF) | payer OTHER, SELFPAY ==
[2025-02-28 17:27] LABS: MANUAL DIFF FLAG NO
[2025-02-28 17:37] LABS: Basophils Percent Auto 0.2 % (0-2); Eosinophils Absolute Auto 0.4 X10*3/uL (0.0-0.4); Eosinophils Percent Auto 4.5 % (0-4); Hematocrit 42.3 % (42.0-52.0); Hemoglobin 14.1 g/dl (14.0-18.0); Imm Gran Abs Auto 0.03 X10*3/uL (0.00-0.03); Imm Gran Pct Auto 0.3 % (0.0-0.4); Lymphocytes Absolute Auto 2.2 X10*3/uL (1.2-4.9); Lymphocytes Percent Auto 25.3 % (20-40); Mean Corpuscular HGB Conc 33.3 g/dl (31.0-36.0); Mean Corpuscular Hemoglobin 28.7 pg (27.0-33.0); Mean Corpuscular Volume 86.2 fL (80.0-98.0); Mean Platelet Volume 11.5 fL (9.4-12.4); Monocytes Absolute Auto 0.6 X10*3/uL (0.1-1.2); Monocytes Percent Auto 6.9 % (2-11); Neutrophils Absolute Auto 5.4 x10*3/uL (2.0-8.3); Neutrophils Percent Auto 62.8 % (45-73); Platelet Count 267 X10*3/uL (160-400); Red Blood Count 4.91 X10*6/uL (4.60-5.80); Red Cell Distribution Width 13.1 % (11.0-16.0); White Blood Count 8.6 X10*3/uL (4.8-10.8)
[2025-02-28 17:58] LABS: Creatinine Urine 113.16 mg/dL; Microalbumin Urine < 5.0 mg/L
[2025-02-28 18:03] LABS: Alanine Aminotransferase 14 U/L (0-40); Albumin Level 4.6 g/dL (3.5-5.0); Alkaline Phosphatase 125 U/L (39-117); Anion Gap 11 (12-20); Aspartate Amino Transferase 17 U/L (5-37); Bilirubin Total 0.3 mg/dL (0.0-1.0); Blood Urea Nitrogen 6 mg/dL (9-16); Calcium 9.6 mg/dL (8.4-10.2); Carbon Dioxide 29 mmol/L (22-29); Chloride 102 mmol/L (96-108); Cholesterol 212 mg/dL (<200); Estimated Glomerular Filt Rate > 60; Glucose Fasting 84 mg/dL (60-99); HDL Cholesterol 32 mg/dL (>40); LDL Cholesterol Calculated 162 mg/dL (<100); Magnesium 2.1 mg/dL (1.6-2.6); Potassium 3.9 mmol/L (3.3-5.1); Sodium 138 mmol/L (135-145); Total Protein 7.2 g/dL (6.5-8.0); Triglycerides 92 mg/dL (<150)
[2025-02-28 18:19] LABS: TSH reflex Free T4 1.29 uIU/mL (0.32-4.0)
[2025-02-28 18:33] LABS: Folate 2.9 ng/mL (> or = 4.0); Vitamin B12 362 pg/mL (200-900)
== END 2025-02-28 15:46 | disposition home or self-care (01) ==
LOC: HO.WFDLDS 15:45
PROVIDERS: Visit Provider Physician Assistant
DX: Z00.00 Encounter for general adult medical examination without abnormal findings (principal); F41.9 Anxiety disorder, unspecified; F32.A Depression, unspecified; M62.81 Muscle weakness (generalized)
CPT/HCPCS: 36415; 80053; 80061; 82570; 82607; 82746; 83735; 84443; 85025

== ENCOUNTER 2025-04-07 15:30 | Outpatient (AMB) | payer OTHER, SELFPAY ==
--- NOTE | 2025-04-07 15:28 | MHC.PC.OV ---
Intake Visit Reasons: FU LABS Intake Note: patient here for follow up on labs [employer] Operations Superintendent Required: No Allergies No Known Allergies Allergy (Verified 04/07/25 15:28) Tobacco use date assessed: 04/07/25 Dental Screening Dental Screen Date: 04/07/25 Did you have a dental visit in the last 12 months?: No Did you have a dental problem in the last 6 months where you did not have access to dental care?: No Was dental information given to patient?: No HPI HPI Comments History of Present Illness Details 29-year-old male presents for a telehealth visit for review of recent lab results. He admits to making healthy lifestyle changes. No acute symptoms at this time. [facility] Medical History (Updated 04/07/25 @ 15:45 by Fawad Simmons CNP) Depression Anxiety Lyme disease Vaso vagal episode Surgical History H/O adenoidectomy History of meatotomy of urethra Social History (Updated 01/30/25 @ 15:49 by Hilary Reich CMA) Housing: Condominium Alcohol intake: current Alcohol intake frequency: a few times a week Patient Tobacco Use Status: Never used Tobacco e-Cigarette/Vaping Use: Never Used Second Hand Smoke Exposure: No Substance Use Type: Marijuana service: No Current occupational status: unemployed Cognitive needs: No Hearing needs: No Vision needs: No Questionnaire Thrive Questionnaire Date Thrive assessed: 01/30/25 ÁLVARO-7 AMB Questionnaire ÁLVARO-7 Date ÁLVARO - 7 assessed: 01/30/25 Source: Developed by Drs. Asher Shook, Susan Connolly, James Ross and colleagues, with an educational macario from [employer]. Review of Systems Const Details: Denies chills, Denies fatigue, Denies fever(s), Denies headache(s) and Denies weakness Cardiac Denies chest pain, Denies claudication, Denies leg edema, Denies lightheadedness, Denies palpitations, Denies dyspnea, Denies dyspnea on exertion, Denies orthopnea and Denies other (Loss of consciousness) Resp Denies cough, Denies excessive phlegm production, Denies dyspnea, Denies dyspnea on exertion, Denies snoring and Denies wheezing Physical exam (Primary Care) Tobacco/Smoking Status: Tobacco use Status Tobacco use date assessed 04/07/25 04/07/25 15:29 Patient Tobacco Use Status Never used Tobacco 04/07/25 15:29 e-Cigarette/Vaping Use Never Used 04/07/25 15:29 Thrive Assessment: Date of Thrive Assessment Date Thrive assessed 01/30/25 04/07/25 15:29 Const Other: Patient is alert and oriented x3 Telehealth Telehealth Telehealth Platform: Telephone Location of provider rendering services: practice address Location of patient: address on file Patient Identification confirmed using: Name, : Yes Telehealth method: voice only Patient verbally consented to treatment: Yes Patient verbally consented to billing insurance company: Yes Patient informed of any privacy concerns related to visit: Yes Coding Level of Care Code Tele Est Pt Level 3 (75840) Diagnoses Hypercholesterolemia E78.00 Folate deficiency E53.8 Time Spent (min) 15 Assessment & Plan Assessment & Plan (1) Hypercholesterolemia: Code(s): E78.00 - Pure hypercholesterolemia, unspecified Category: Medical Plan: Recent total cholesterol and LDL levels a elevated, 212 and 162 respectively, HDL level is low, 32, triglycerides level normal. Advised to limit foods high in saturated fat and avoid foods high in trans fat. Routine exercise encouraged. Fast for 10-12 hours, may drink water, and perform lipid panel blood work 2-3 days before next visit. Follow-up for telehealth visit in 2 months. Return sooner with symptoms or concerns. Verbalized understanding and agreed with the plan. (2) Folate deficiency: Code(s): E53.8 - Deficiency of other specified B group vitamins Category: Medical Plan: Recent folate level is low, 2.9. Normal H&H. Folic acid 0.4 mg daily ordered; advised to take as prescribed. Will recheck folate levels in 2 months. Orders: Orders Folate 2 Months E53.8 - Deficiency of other specified B group vitamins Lipid Panel 2 Months E78.00 - Pure hypercholesterolemia, unspecified Medications: New folic acid 0.4 mg PO DAILY 30 tabs 3RF 30 days
--- OUTSIDE RECORDS SUMMARY | 2025-04-07 15:49 | XMS_ITS | Clinical Summary ---
Author Organization [facility] Address [address] [place] [id number] Phone Care Team Providers Care Insurance Analyst Name Role Phone Pcp, Unknown Primary Care Provider Unavailabl e Allergies Active Allergy Reactions Criticality Noted Date Comments Other 12/31/2008 seasonal Medications No known medications Social History Tobacco Use Types Packs/Day Years Used Date Smoking Tobacco: Never Smokeless Tobacco: Never Tobacco Cessation:Counseling Given: Not Answered Education Answer Date Recorded Are you interested in more education? Not on lashawn e 10/09/2024 Are you concerned about learning? Not on file 10/09/2024 No 10/09/2024 No 10/09/2024 Digital Access Answer Date Recorded No 10/09/2024 No 10/09/2024 Reliable internet access at home? Not on file 10/09/2024 Device with a working camera? Not on file Sex and Gender Information Value Date Recorded Sex Assigned at Not on file Legal Sex Male 3:06 PM EST Gender Identity Not on file Sexual Orientation Not on file Last Filed Vital Signs Vital Sign Reading Time Taken Comments Blood Pressure 121/75 10/15/2024 12:40 PM EST Pulse 72 10/15/2024 12:40 PM EST Temperature 36.6 C (97.8 F) 10/15/2024 12:40 PM EST Respiratory Rate 17 10/15/2024 12:40 PM EST Oxygen Saturation 100% 10/15/2024 12:40 PM EST Inhaled Oxygen Concentration - - Weight - - Height - - Body Mass Index - - Plan of Treatment Health Maintenance Due Date Last Done Comments Adult Td,Tdap Booster 1993 DEPRESSION SCREENING 2005 HEPATITIS C SCREENING 2011 HIV ONE-TIME SCREENING (18-6 5 YEARS) 2011 COVID-19 VACCINE (2023-2 5 season) 2024 MENINGOCOCCAL VACCINES (ACWY) Aged Out 04/17/2007 No longer eligible based on patient's age to complete this topic SMOKING STATUS SCREENING (On ce After 26 Yrs) Completed 10/15/2024 HEPATITIS A VACCINES Aged Out No long er eligible based on patient's age to complete this topic HIB VACCINES Aged Out No longer eligi ble based on patient's age to complete this topic MENINGOCOCCAL VACCINES (B) Aged Out N o longer eligible based on patient's age to complete this topic PNEUMOCOCCAL VACCINES (0-49 years) Aged Out No longer eligible based on patient's age to complete this topic Medical Devices Not on file Insurance [place] [address] [place] [address] [place] [address] [place] [address] [place] [address] [place] [address] [employer]CO [employer] Care Teams Insurance Analyst Relationship Specialty Start Date End Date Pcp, Unknown PCP - General 10/09/24 Additional Source Comments The information contained in this document represents components of the legal health record. It is not the complete legal health record.[facility]
== END 2025-04-07 16:41 | disposition home or self-care (01) ==
LOC: HO.HMCFM 15:30
PROVIDERS: PCP Nurse Practitioner Family; Visit Provider Nurse Practitioner Family
DX: E78.00 Pure hypercholesterolemia, unspecified (principal); E53.8 Deficiency of other specified B group vitamins